=== PATIENT | female | born 1995 | race American Indian/Alaskan Native ===

== ENCOUNTER 2018-05-31 07:18 | Emergency (ER) | payer MEDICAID, OTHER ==
[2018-05-31 07:43] VITALS: BP 122/65
--- NOTE | 2018-05-31 08:48 | Emergency Department Report ---
Chief Complaint: Urogenital-Female Stated Complaint: STI Time Seen by Provider: 05/31/18 08:42 - HPI History of Present Illness: exposure to chlamydia called and told to get treated no life threat ABC intact MSE completed - Exam Vital Signs: Vital Signs 05/31/18 07:41 Temperature 98.3 F Pulse Rate 88 Respiratory 16 Rate Blood Pressure 122/65 O2 Sat by Pulse 100 Oximetry MSE screening note: Focused history and physical exam performed. Due to findings the following was ordered: ED Disposition for MSE Condition: Stable [facility] [Primary Care Provider[facility] - 3-5 Days
[2018-05-31 09:05] LABS: Bilirubin,Urine NEG (Negative); Blood,Urine NEG (Negative); Color,Urine Yellow (Yellow); Mucus,Urine FEW /HPF; Protein,Urine <15 mg/dL mg/dL (Negative); Urobilinogen,Urine < 2.0 mg/dL (<2.0)
[2018-05-31] MEDS ORDERED: XYLOCAINE 1% MPF 5 mL INFILTRATI ONE (09:12)
[2018-05-31] MEDS ORDERED: ROCEPHIN IM ONE (09:12)
[2018-05-31] MEDS ORDERED: ZITHROMAX PO ONE (09:13)
[2018-05-31 09:18] LABS: HCG Qualitative,Urine Positive (Negative)
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
== END 2018-05-31 10:01 | disposition home or self-care (01) ==
LOC: ED 07:18
DX: O98.511 Other viral diseases complicating pregnancy, first trimester (principal); B33.8 Other specified viral diseases; Z3A.01 Less than 8 weeks gestation of pregnancy
CPT/HCPCS: 81001; 81025; 96372; 99283; J0696

== ENCOUNTER 2019-06-05 21:42 | Emergency (ER) | payer OTHER ==
[2019-06-05] MEDS ORDERED: ACETAMINOPHEN 500 MG TAB PO ONE ×2 (22:16→22:17)
[2019-06-05] MEDS ORDERED: SODIUM CHLORIDE 0.9% 1000 ML IV SOLN IV ONE (22:16)
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
[2019-06-05] MEDS ORDERED: KETOROLAC 30 MG/1 ML INJ IV ONE (22:30)
--- NOTE | 2019-06-05 22:56 | XRay Report ---
CHEST 1 VIEW INDICATION: shortness breath COMPARISON: None FINDINGS: Support devices: None Heart: Normal Lungs/Pleura: No acute pulmonary or pleural findings. IMPRESSION: 1. No acute disease. Signer Name: Diallo Molina MD Signed: 06/05/2019 10:52 PM Workstation Name: [id number]
[2019-06-05 23:16] LABS: Hematocrit 33.3 % (30.3-42.9); Hemoglobin 10.8 gm/dl (10.1-14.3); Mean Corpuscular HGB Conc 32 % (30-34); Mean Corpuscular Volume 75 fl (79-97); Platelet Count 244 K/mm3 (140-440); Red Blood Count 4.45 M/mm3 (3.65-5.03); Red Cell Distribution Width 16.6 % (13.2-15.2)
[2019-06-05] MEDS ORDERED: dexAMETHasone 20 MG/5 ML VIAL IV ONE (23:20)
[2019-06-05 23:40] LABS: Albumin 4.1 g/dL (3.9-5); BUN/Creatinine Ratio 13; Blood Urea Nitrogen 8 mg/dL (7-17); Calcium 9.1 mg/dL (8.4-10.2); Hemolysis Index 91
[2019-06-06 00:01] LABS: Alanine Aminotransferase 7 units/L (7-56)
[2019-06-06 00:54] LABS: Bilirubin,Urine NEG (Negative); Blood,Urine NEG (Negative); Color,Urine Yellow (Yellow); Mucus,Urine 2+ /HPF; Protein,Urine <15 mg/dL mg/dL (Negative); Urobilinogen,Urine < 2.0 mg/dL (<2.0)
[2019-06-06 02:32] VITALS: BP 131/79
== END 2019-06-06 02:33 | disposition home or self-care (01) ==
LOC: ED 21:42
DX: J03.80 Acute tonsillitis due to other specified organisms (principal); R42 Dizziness and giddiness; B97.89 Other viral agents as the cause of diseases classified elsewhere; F32.9 Major depressive disorder, single episode, unspecified; Z98.890 Other specified postprocedural states; Z79.1 Long term (current) use of non-steroidal anti-inflammatories (NSAID); Z79.899 Other long term (current) drug therapy; Z88.8 Allergy status to other drugs, medicaments and biological substances; Z91.018 Allergy to other foods
CPT/HCPCS: 36415; 71045; 80053; 81001; 82140; 84703; 85027; 87040; 87116; 87400; 87430; 96361; 96374; 96375; 99284; J1100; J1885; J7030